=== PATIENT | female | born 1995 | race Caucasian/White ===

== ENCOUNTER 2020-07-29 12:27 | Observation (INO) | payer OTHER ==
[~2020-07-29] VITALS: Ht 157.5 cm; Wt 59.4 kg
[2020-07-29] MEDS ORDERED: PREN1CTB21 PO (13:53)
== END 2020-07-29 14:10 | disposition home or self-care (01) ==
LOC: MLD 12:27
PROVIDERS: ADMIT Obstetrics & Gynecology; ATTEND Obstetrics & Gynecology
DX: O36.8130 Decreased fetal movements, third trimester, not applicable or unspecified (principal); O62.9 Abnormality of forces of labor, unspecified; O09.43 Supervision of pregnancy with grand multiparity, third trimester; Z3A.32 32 weeks gestation of pregnancy
CPT/HCPCS: 81000; G0378

== ENCOUNTER 2020-08-02 15:29 | Observation (INO) | payer OTHER, SELFPAY ==
[~2020-08-02] VITALS: Ht 157.5 cm; Wt 61.7 kg
[~2020-08-02 15:29] MED LIST: PREN1CTB21 PO
[2020-08-02 16:01] VITALS: BP 125/83
[2020-08-02 16:56] LABS: APPEARANCE,URINE CLEAR (CLEAR); BILIRUBIN,URINE NEGATIVE (NEGATIVE); BLOOD, URINE 1+ (NEGATIVE); COLOR,URINE YELLOW (YELLOW); LEUKOCYTE ESTERASE ,URINE 1+ (NEGATIVE); NITRITE, URINE NEGATIVE (NEGATIVE); PH,URINE 6.5 (5.0-9.0); UGLUCOSE NEGATIVE (NEGATIVE)
== END 2020-08-02 18:57 | disposition home or self-care (01) ==
LOC: MLD 15:29
PROVIDERS: ADMIT Obstetrics & Gynecology; ATTEND Obstetrics & Gynecology
DX: O36.8130 Decreased fetal movements, third trimester, not applicable or unspecified (principal); Z91.018 Allergy to other foods; Z91.030 Bee allergy status; Z3A.33 33 weeks gestation of pregnancy
CPT/HCPCS: 36415; 81000; 81001; 86850; 86886; 86900; 86901; 87086; G0378; J2790; 96372